=== PATIENT | female | born 1995 | race Caucasian/White ===

== ENCOUNTER → 2022-04-09 | Outpatient (CLI) | payer MEDICAID, SELFPAY ==
--- NOTE | 2022-04-09 15:12 | ST.MBS ---
Modified Barium Swallow - Patient Information Study Date: 04/09/22 Study Time: 12:50 Direct Billable Minutes: 55 Total Minutes procedure & reportin Diagnosis: Dysphagia (R13.10) Referring Physician: Suraj Freeman Reason for Referral: Objectively assess swallow function, assess risk for aspiration, and determine recommendations for least restrictive diet textures and compensatory strategies to improve safety of swallow. Medical History: The patient is a 27-year-old female with PMH including seizures and depression who reports increased difficulty swallowing beginning ~2.5 weeks ago. Pt initially reported choking on foods; however, then clarified her difficulty swallowing is characterized by sensation of food stuck on the back of her tongue, sensation of her swallowing muscles lagging, and need for use of finger sweep to clear foods on the back of her tongue. She reports no coughing, difficulty breathing when food becomes stuck, and no need for Heimlich at any time. She did go to the ED ~2.5 weeks ago as she felt she was unable to eat food or even swallow her saliva, she also reported having a panic attack at that time. Liquids have given her no difficulty swallowing. She is currently consuming soft solids / thin liquids and avoiding breads and meats. Current Diet Ordered: Soft solids / Thin liquids Dentition: Missing Teeth Mental Status: WNL Respiratory Status: Oxygenating on Room Air - Penetration-Aspiration Scale Penetration-Aspiration Scale: OBJECTIVE ASSESSMENT OF SWALLOW FUNCTION (QUANTITATIVE ? PER TRIAL): PENETRATION / ASPIRATION SCALE (LEVINE): 1 = does not enter airway 2 = enters airway/above vocal folds/ejected 3 = enters airway/above vocal folds/not ejected 4 = enters airway/contacts vocal folds/ejected 5 = enters airway/contacts vocal folds/not ejected 6 = enters airway/below vocal folds/ejected 7 = enters airway/below vocal folds/not ejected despite effort 8 = enters airway/below vocal folds/no effort VIDEOFLOROSCOPIC SCALE SCORE (LEVINE): Grade I = aspiration of material that has penetrated into the laryngeal vestibule, intact cough reflex Grade II = aspiration < 10 % of the bolus, intact cough reflex Grade III = aspiration of < 10 % of the bolus, reduced cough reflex or aspiration of > 10 % of the bolus, intact cough reflex Grade IV = aspiration of > 10 % of the bolus, reduced cough reflex - Penetration-Aspiration Scale Score Thin Liquid via teaspoon Result: 1= does not enter airway Thin Liquid via teaspoon Trial 2 Result: 1= does not enter airway Thin Liquid via large single sip from cup Result: 1= does not enter airway Thin Liquid via sequential sips from cup Result: 2= enter airway/above vocal folds/ejected - trace [place] Thick Liquid via large single sip from cup Result: 1= does not enter airway Pudding via teaspoon with esophageal screen Result: 1= does not enter airway Thin Liquid via sequential sips from straw with esophageal screen Result: 1= does not enter airway 1/2 Cookie Result: 1= does not enter airway Thin Liquid via large single sip from cup Trial 2 with esophageal screen Result: 1= does not enter airway - Oral Phase Labial Seal: No Labial Escape Tongue Control During Bolus Hold: Posterior escape of less than half of bolus Bolus Preparation/Mastication: Slow prolonged chewing/mashing with complete recollection Bolus Transport/Lingual Motion: Delayed initiation of tongue motion Oral Residue: Residue collection on oral structures - Pharyngeal Phase Initiation of Pharyngeal Swallow: Bolus head in pyriforms Soft Palate Elevation: No bolus between soft palate and pharyngeal wall Laryngeal Elevation: Comp. Superior move thyroid cart w/comp. apprx arytenoid cart-epig pet Anterior Hyoid Excursion: Partial anterior movement Epiglottic Movement: Complete inversion Laryngeal Vestibule Closure at Height of Swallow: Incomplete; narrow column of air/contrast in laryngeal vestibule - trace laryngeal penetration with sequential thin with full ejection Pharyngeal Stripping Wave: Present - complete Pharyngoesophageal Segment Opening: Complete distension and complete duration; no obstruction of flow Tongue Base Retraction: Trace column of contrast between tongue base & post. pharyngeal wall Pharyngeal Residue: Trace residue within or on pharyngeal structures - Esophageal Phase Esophageal Clearance: Esophageal retention w/ retrograde flow below pharyngoesophageal seg. - Diagnosis/Impression Diagnosis: Esophageal dysphagia (R13.14) Impression: The oropharyngeal phase is grossly WNL. Mild delay initiating the swallow. Mildly decreased anterior hyoid excursion. Pt presents with piecemeal deglutition of large sips and cookie, but good oral clearance with independent initiation of second swallows. Trace pharyngeal residue after the swallow. No aspiration and only trace laryngeal penetration of sequential sips of thin liquids that fully ejected from the laryngeal vestibule. Good mastication abilities. The patient presented with complete esophageal retention of pudding in her mid esophagus with retrograde flow below UES. The pudding mostly cleared with thin liquid wash. - Recommendations Diet: Thin Liquids - Easy to Chew textures (IDDSI Level 7) Compensatory Strategies: Small Bites, Small Sips, Slow Rate, Alternate bites/solids and sips/liquids - 1:1 ratio, Sitting upright, Remain sitting upright for 30 minutes after PO intake Recommend Repeat Modified Barium Swallow: No Need for Skilled Speech Therapy Services: No Recommended Referrals: GI Consult - to address deficits in esophageal motility Education Completed: 1. Described result of evaluation. - Reviewed images and discussed recommendations with pt and pt's mother, Natalie. Education well received. - Status Active ST Patient: Active - Contact Information [facility] Speech Therapy:: Odalys Linder M.A. [facility] Speech-Language Pathologist [facility] [address] [place] [address] [email or web address] [phone] 04/09/22 16:06
== END | disposition home or self-care (01) ==
LOC: RAD 12:34
PROVIDERS: PCP Family Medicine; Referring Provider Family Medicine; Visit Provider Family Medicine
DX: R13.10 Dysphagia, unspecified (principal)
CPT/HCPCS: 74230; 92611

== ENCOUNTER 2022-09-19 06:04 | Day surgery (SDC) | payer MEDICAID, SELFPAY ==
[2022-09-19 06:39] LABS: Internal QC Validated? YES +Cl - CLEAR BKGD; Pregnancy, Urine Negative Negative
[2022-09-19 06:47] VITALS: BP 119/81; PULSE 103; RESP 16; TEMP 37.3; O2SAT 98; BMI 27.6
[2022-09-19] MEDS: Lactated Ringers 1,000 ML 15 ML IV (06:55)
--- NOTE | 2022-09-19 07:30 | EGD_PTH ---
PATIENT: KAHLIL DHILLON LOC: EN U#:[id number] AGE/SX: 27/F ROOM: RE09/19/[address]: Dr. hCris Yañez DO : 1995 BED: DIS: 09/19/2022 SPEC #: [id number] RECD: 09/19/22 10:13 STATUS: TD JEWEL #: [id number] THIAGO: 09/19/22 07:[address]: Chris Yañez DEPT: SURGICAL PATHOLOGY RECD BY: Whit Mcallister ENTERED: 09/19/22 13:02 SP TYPE: EGD BIOPSY ANKIT DR: Dr. Suraj Freeman MD Tissues: A - Duodenum, NOS B - Gastric mucous membrane C - Esophagus, NOS Procedures: Surgery Specimen Level IV HEADER OPERATION: EGD ([facility]) with biopsy PRE-OP DIAGNOSIS: Dysphagia TISSUE SUBMITTED: A - Duodenum biopsy, B - Gastric antrum biopsy, C - Random esophageal biopsy MICROSCOPIC DIAGNOSIS A. Duodenum, biopsy: No pathologic change. B. Gastric antrum, biopsy: Chronic gastritis. See comment. C. Esophagus, random biopsy: Consistent with changes of reflux. See comment. AM:sruthi 09/20/2022 COMMENT B. The results of immunohistochemistry for Helicobacter pylori will be reported separately ([id number]). C. The eosinophilic count varies from 7 to 15% in each high power field. Clinical correlation is suggested. MICROSCOPIC DESCRIPTION Slides are reviewed. GROSS DESCRIPTION A - Received in fixative is one container labeled with the patient's name and designated duodenum biopsy. The specimen consists of multiple irregular fragments of light brody soft tissue that in aggregate measure 1.0 x 0.3 x 0.1 cm. The specimen is totally submitted in one cassette. B - Received in fixative is one container labeled with the patient's name and designated gastric antrum biopsy. The specimen consists of multiple irregular fragments of light brody soft tissue that in aggregate measure 0.6 x 0.4 x 0.1 cm. The specimen is totally submitted in one cassette. C - Received in fixative is one container labeled with the patient's name and designated random esophagus. The specimen consists of multiple irregular fragments of light brody soft tissue that in aggregate measure 1.0 x 0.5 x 0.1 cm. The specimen is totally submitted in one cassette. / CASSANDRA:sruthi 09/19/2022 TC:3 CPT: 89631 x3
--- NOTE | 2022-09-19 07:30 | IMM_PTH ---
PATIENT: KAHLIL DHILLON LOC: EN U#:[id number] AGE/SX: 27/F ROOM: RE09/19/[address]: Dr. Chris Yañze DO : 1995 BED: DIS: 09/19/2022 SPEC #: [id number] RECD: 09/19/22 13:30 STATUS: TD RELatia #: [id number] THIAGO: 09/19/22 07:[address]: Chris Yañez DEPT: IMMUNOHISTOCHEMISTRY RECD BY: Regine Christine ENTERED: 09/19/22 13:31 SP TYPE: IMMUNO OTHR DR: Dr. Suraj Freeman MD Tissues: B - Stomach, NOS Procedures: H Pylori (initial) PHYSICIAN & INSTITUTION [place] [id number] SPECIMEN INFORMATION: Tissue Source: B - Gastric antrum Clinical Info: Dysphagia Specimen Number: [id number] CPT code: 90753 METHODOLOGY: Deparaffinized sections of prefer/formalin-fixed tissue or PAP/DQ stained slides are incubated with monoclonal/polyclonal antibodies/oligonucleotide probes. Localization is made via biotin free immunoperoxidase method. Appropriate controls are performed and reacted as expected. Results on target cell population are indicated in the following table: RESULTS: ANTIBODY / CLONE RESULT Block B H Pylori (polyclonal) negative These tests were developed and their performance characteristics determined by [facility]. They may not have been cleared or approved by the U.S. Food and Drug Administration. The FDA has determined that such clearance or approval is not necessary. The above immunohistochemical/dualISH markers are ordered and reviewed by the Pathologist. INTERPRETATION: B. Gastric antrum, biopsy: Negative for Helicobacter pylori organisms. AM:sruthi 09/20/2022
--- NOTE | 2022-09-19 07:42 | PCM.HP.BLA ---
History and Physical Date of Admission: 09/19/22 Chief Complaint: difficulty swallowing Details: KAHLIL DHILLON, is a 27 F who presents to the office today to establish with GI for difficulty swallowing. She is accompanied by her mom. Dysphagia began at the end of 2021, flared in March 2022. Sensation that esophagus isn't moving food along correctly. The problem feels like it's in the oropharynx or upper esophagus. Went to [facility] ED on 03/21/22 for difficulty swallowing, she had sinus tachycardia then, she reports she was having a panic attack because of the sensation of choking. Had a MBSS here at [facility] with [employer] [employer]--found to have esophageal retention w/ retrograde flow below pharyngoesophageal seg. She has has seasonal allergies. Hx of asthma. She is avoiding meat other than ground beef, avoiding sticky foods like bread. Only rare heartburn from spicy foods. No nausea, vomiting, abd pain. No diarrhea, constipation, melena, hematochezia. Weight is stable. ROS Const Constitutional: Positive for fatigue ENT ENT: Positive for difficulty swallowing Gastro GI: Positive for difficulty swallowing; No abdominal pain, belching, bloating, change in bowel habits, change in stool character, coffee ground emesis, constipation, cramping, diarrhea, heartburn, feeling full early, excessive flatus, incontinent of stools, Vomiting blood/hematemesis, Blood in stool, loose stools, Black,tarry stools, nausea/dyspepsia, pain with swallowing, vomiting or other Musc Musculoskeletal: No joint pain Skin Skin: No yellowing of the eye or itchy eyes Psych Psychiatric: Positive for anxiety and No depression Endo Endocrine: Positive for fatigue Aller/Imm Allergy/Immunologic: No itchy eyes Magnus/Lymp Hematologic/Lymphatic: Positive for easy bruising; No easy bleeding Exam Const General: cooperative, healthy appearing and comfortable Nutritional Appearance: average body habitus Orientation: alert, awake and oriented x3 HENMT Head: normal to inspection Neck Neck: normal visual inspection Resp Effort & Inspection: normal respiratory effort GI Inspection: normal to inspection Skin General: no rashes or lesions noted Neuro Speech: speech normal Gait: normal gait Psych Mood: congruent mood Quality Reporting Tobacco Screening ([facility] 138) Smoking Status: Current every day smoker Assessment and Plan Assessment and Plan (1) Dysphagia: Status: Chronic Plan: 27 yr old female with dysphagia. Esophageal retention on MBSS. Will get EGD to eval for esophagitis, reflux, stricture/stenosis, EOE, spasms; f/u in office approx 2 wks later to discuss results and treatment. We discussed possible esophageal manometry. Orders: Orders EGD 09/19/22 R13.10 - Dysphagia, unspecified Medications: Discontinued albuterol sulfate 90 mcg/actuation (ProAir HFA) Discontinued Reason: Pt no longer taking 1 inh inhalation ONCE paroxetine HCl Discontinued Reason: Order Completed 20 mg PO DAILY clonazepam (Klonopin) Discontinued Reason: Pt no longer taking 0.5 mg PO DAILY trazodone Discontinued Reason: Pt no longer taking 50 mg PO DAILY I have examined the patient and the H&P has been reviewed. There are no clinical changes since date of exam.
[2022-09-19 07:55] VITALS: BP 108/71; BP 119/81; PULSE 107; RESP 16; TEMP 36.9; O2SAT 96
--- NOTE | 2022-09-19 07:58 | OP.EGD_ITS ---
Patient Name: Amy Medina Procedure Date: 09/19/2022 7:34 AM Date of : 1995 Age: 27 Procedure: Upper GI endoscopy Indications: Functional Dyspepsia, Dysphagia Providers: Chris Yañez DO Referring MD: Chris Yañez DO Medicines: Monitored Anesthesia Care Patient Profile: This is a 27 year old female. Refer to note in patient chart for documentation of history and physical. Patient has symptoms of acute dysphagia and chronic dyspepsia. Complications: No immediate complications. Procedure: Pre-Anesthesia Assessment: - Prior to the procedure, a History and Physical was performed, and patient medications and allergies were reviewed. The risks and benefits of the procedure and the sedation options and risks were discussed with the patient. All questions were answered and informed consent was obtained. Patient identification and proposed procedure were verified by the physician in the pre-procedure area. Mental Status Examination: alert and oriented. Airway Examination: normal oropharyngeal airway and neck mobility. Respiratory Examination: clear to auscultation. CV Examination: normal. Prophylactic Antibiotics: The patient does not require prophylactic antibiotics. Prior Anticoagulants: The patient has taken no previous anticoagulant or antiplatelet agents. ASA Grade Assessment: II - A patient with mild systemic disease. After reviewing the risks and benefits, the patient was deemed in satisfactory condition to undergo the procedure. The anesthesia plan was to use monitored anesthesia care (MAC). Immediately prior to administration of medications, the patient was re-assessed for adequacy to receive sedatives. The heart rate, respiratory rate, oxygen saturations, blood pressure, adequacy of pulmonary ventilation, and response to care were monitored throughout the procedure. The physical status of the patient was re-assessed after the procedure. After obtaining informed consent, the endoscope was passed under direct vision. Throughout the procedure, the patient's blood pressure, pulse, and oxygen saturations were monitored continuously. The gastroscope was introduced through the mouth, and advanced to the second part of duodenum. The upper GI endoscopy was accomplished without difficulty. The patient tolerated the procedure well. Scope In: 7:46:26 AM Scope Out: 7:50:57 AM Total Procedure Duration Time 0 hours 4 minutes 31 seconds Findings: Abnormal motility was noted at the cricopharyngeus. The cricopharyngeus was abnormal. There is spasticity of the esophageal body. The distal esophagus/lower esophageal sphincter is spastic, but gives up passage to the endoscope. Tertiary peristaltic waves are noted. Biopsies were obtained from the proximal and distal esophagus with cold forceps for histology of suspected eosinophilic esophagitis. Patchy mildly erythematous mucosa without bleeding was found in the gastric antrum. Biopsies were taken with a cold forceps for histology. Verification of patient identification for the specimen was done. Estimated blood loss was minimal. Patchy mildly erythematous mucosa without active bleeding and with no stigmata of bleeding was found in the duodenal bulb. Biopsies were taken with a cold forceps for histology. Verification of patient identification for the specimen was done. Estimated blood loss was minimal. Impression: - Abnormal esophageal motility. Biopsied. - Erythematous mucosa in the antrum. Thought to be secondary to bile reflux. This area was biopsied. - Erythematous duodenopathy. Thought to be secondary to bile reflux. This area was biopsied. Recommendation: - Discharge patient to home. - Resume previous diet. - Continue present medications. - Await pathology results. Procedure Code(s): --- Professional --- 18510, Esophagogastroduodenoscopy, flexible, transoral; with biopsy, single or multiple CPT copyright 2017 [employer]. All rights reserved. The codes documented in this report are preliminary and upon hook up driver review may be revised to meet current compliance requirements. Chris Yañez DO 09/19/2022 7:57:35 AM This report has been signed electronically. Number of Addenda: 0 Note Initiated On: 09/19/2022 7:34 AM
--- NOTE | 2022-09-19 07:58 | OP.CCLET_ITS ---
09/19/2022 Suraj Freeman MD [address] [id number] Re : Upper GI endoscopy procedure for Amy Medina Dear Dr. Freeman This procedure was performed on Monday, September 19, 2022. My impressions and recommendations are as follows: Impressions : - Abnormal esophageal motility. Biopsied. - Erythematous mucosa in the antrum. Thought to be secondary to bile reflux. This area was biopsied. - Erythematous duodenopathy. Thought to be secondary to bile reflux. This area was biopsied. Recommendations : - Discharge patient to home. - Resume previous diet. - Continue present medications. - Await pathology results. My findings are described in the full procedure note, which is enclosed. If I can be of further assistance, please feel free to contact me at . Sincerely, Chris Yañez, 09/19/2022 7:57:35 AM This report has been signed electronically.
[2022-09-19 08:00] VITALS: BP 109/72; BP 119/81; PULSE 97; RESP 16; O2SAT 97
[2022-09-19 08:05] VITALS: BP 112/78; BP 119/81; PULSE 91; RESP 16; O2SAT 100
[2022-09-19 08:10] VITALS: BP 111/72; BP 119/81; PULSE 89; RESP 16; TEMP 36.6; O2SAT 100
[2022-09-19] MEDS: Ipratropium/Albuterol Sulfate 3 ML AMPUL.NEB INHALATION (08:20)
[2022-09-19 08:33] VITALS: BP 119/81
== END 2022-09-19 08:55 | disposition home or self-care (01) ==
LOC: EN 06:06 → AC 06:07
PROVIDERS: Anesthesiology; PCP Family Medicine; Referring Provider Family Medicine; Visit Provider Internal Medicine Gastroenterology
PROC: 0DJ08ZZ Inspection of Upper Intestinal Tract, Via Natural or Artificial Opening Endoscopic (ICD-10-PCS; CPT 43235; principal; 2022-09-19 07:25)
DX: K29.51 Unspecified chronic gastritis with bleeding (principal); F17.200 Nicotine dependence, unspecified, uncomplicated; J45.909 Unspecified asthma, uncomplicated
CPT/HCPCS: 43239; 81025; 88305; 88342; 94640; J7120; J2405

== ENCOUNTER → 2022-09-26 | Outpatient (CLI) | payer MEDICAID, SELFPAY ==
[2022-09-26 10:06] LABS: Absolute Lymphocyte Count 1.51 X10^3/uL (0.83-4.51); Basophil# 0.05 X10^3/uL; Basophil% 0.8 % (0-1); Eosinophil# 0.11 X10^3/uL; Eosinophils% 1.8 % (0-5); Hematocrit 44.2 % (37-47); Hemoglobin 13.4 g/dL (12.0-15.0); Lymphocyte # 1.51 X10^3/ul (0.83-4.51); Lymphocyte % 24.5 % (19-41); Mean Corp Hgb Conc 30.3 g/dL (32-36); Mean Corpuscular Hgb 22.8 pg (27.0-32.0); Mean Corpuscular Volume 75.3 fL (81-99); Mean Platelet Vol. 12.6 fl (6.2-12.0); Monocyte# 0.45 X10^3/uL; Monocyte% 7.3 % (0-10); NRBC Flagged by Analyzer 0 % (0-5); Neutrophil # 4.02 X10^3/uL (2.7-7.7); Neutrophil % 65.1 % (47-70); Platelet Count 249 K/mm3 (150-450); RBC Distribution Width CV 14.1 % (11.6-14.6); Red Blood Count 5.87 M/mm3 (4.2-5.4); White Blood Count 6.2 K/mm3 (4.4-11.0)
[2022-09-26 10:17] LABS: Erythrocyte Sedimentation Rate 25 mm/hr (0-30)
[2022-09-26 10:48] LABS: CRP < 2.90 mg/L (0.0-3.0)
[2022-09-29 03:07] LABS: Beef <0.10 kU/L (Class 0); Chocolate <0.10 kU/L (Class 0); Clam <0.10 kU/L (Class 0); Codfish <0.10 kU/L (Class 0); Corn <0.10 kU/L (Class 0); Egg, White <0.10 kU/L (Class 0); Egg, Whole <0.10 kU/L (Class 0); Milk (Cow) <0.10 kU/L (Class 0); Peanut <0.10 kU/L (Class 0); Pork 0.62 kU/L (Class II); SCALLOP <0.10 kU/L (Class 0); SESAME SEED <0.10 kU/L (Class 0); Shrimp <0.10 kU/L (Class 0); Soybean <0.10 kU/L (Class 0); Walnut, (Food) <0.10 kU/L (Class 0); Wheat <0.10 kU/L (Class 0)
[2022-09-29 11:08] LABS: Cytoplasmic Ab (C-ANCA) <1:20 titer (Neg:<1:20); Immunoglobulin A 366 mg/dL (87-352); Immunoglobulin E 72 IU/mL (6-495); Immunoglobulin G 1189 mg/dL (586-1602); Immunoglobulin M 219 mg/dL (26-217); Perinuclear Ab (P-ANCA) <1:20 titer (Neg:<1:20)
== END | disposition home or self-care (01) ==
LOC: LAB 09:19
PROVIDERS: PCP Family Medicine; Referring Provider Internal Medicine Gastroenterology; Visit Provider Internal Medicine Gastroenterology
DX: R13.10 Dysphagia, unspecified (principal)
CPT/HCPCS: 36415; 82784; 82785; 85025; 85652; 86003; 86005; 86140; 86256

== ENCOUNTER → 2023-12-11 | Outpatient (CLI) | payer MEDICAID, SELFPAY ==
[2023-12-11 11:54] LABS: Absolute Lymphocyte Count 1.54 X10^3/uL (0.83-4.51); Absolute Neutrophil Count 3.8 X10^3/uL (2.0-7.7); Basophil# 0.04 X10^3/uL; Basophil% 0.7 % (0-1); Eosinophil# 0.08 X10^3/uL; Eosinophils% 1.4 % (0-5); Hematocrit 44.1 % (37-47); Hemoglobin 13.4 g/dL (12.0-15.0); Lymphocyte # 1.54 X10^3/ul (0.83-4.51); Lymphocyte % 26.6 % (19-41); Mean Corp Hgb Conc 30.4 g/dL (32-36); Mean Corpuscular Hgb 22.7 pg (27.0-32.0); Mean Corpuscular Volume 74.6 fL (81-99); Mean Platelet Vol. 12.1 fl (6.2-12.0); Monocyte# 0.35 X10^3/uL; Monocyte% 6.1 % (0-10); NRBC Flagged by Analyzer 0 % (0-5); Neutrophil # 3.76 X10^3/uL (2.7-7.7); Platelet Count 242 K/mm3 (150-450); RBC Distribution Width CV 14.7 % (11.6-14.6); RBC Distribution Width SD 38.9 fl (35.1-43.9); Red Blood Count 5.91 M/mm3 (4.2-5.4); White Blood Count 5.8 K/mm3 (4.4-11.0)
[2023-12-11 12:20] LABS: AST(SGOT) 9 U/L (15-37); Alanine Aminotransfer ALT/SGPT 16 U/L (13-56); Albumin, Serum 4.1 g/dL (3.2-5.0); Alkaline Phosphatase 99 U/L (45-117); Anion Gap 3 (5-15); BUN 6 mg/dL (7-18); BUN/Creat Ratio 6.9 RATIO (10-20); Calcium,Total 9.2 mg/dL (8.5-10.1); Chloride 108 mmol/L (98-107); Creatinine, Serum 0.87 mg/dL (0.55-1.02); EST Glomerular Filtration Rate 81 mL/min (>60); Est Glom Filt Rate - Afr Amer 98 mL/min (>60); Glucose 96 mg/dL (74-106); Potassium 3.6 mmol/L (3.5-5.1); Protein, Total 8.1 g/dL (6.4-8.2); Sodium Level 140 mmol/L (136-145); Vitamin B12 372 pg/mL (211-911)
== END | disposition home or self-care (01) ==
LOC: LAB 11:18
PROVIDERS: PCP Family Medicine; Referring Provider Internal Medicine Gastroenterology; Visit Provider Internal Medicine Gastroenterology
DX: K22.4 Dyskinesia of esophagus (principal)
CPT/HCPCS: 36415; 80053; 82607; 85025

== ENCOUNTER 2024-05-25 05:43 | Day surgery (SDC) | payer MEDICAID, SELFPAY ==
[2024-05-25 06:12] LABS: Internal QC Validated? YES +Cl - CLEAR BKGD; Pregnancy, Urine Negative Negative
[2024-05-25 06:14] VITALS: BP 126/73; PULSE 108; RESP 16; TEMP 37.1; O2SAT 100; BMI 28.5
--- NOTE | 2024-05-25 06:21 | HP.PCM_ITS ---
HPI - General General Date of Admission: 05/25/24 Date of Service: 05/25/24 Chief Complaint: dysphagia HPI Narrative KAHLIL DHILLON, is a 29 F who presentsChief Complaint: difficulty swallowing Details: KAHLIL DHILLON is a 29 F who presents to the office today for EGD 09/2022 - Abnormal esophageal motility. Biopsied. - Erythematous mucosa in the antrum. Thought to be secondary to bile reflux. This area was biopsied. - Erythematous duodenopathy. Thought to be secondary to bile reflux. This area was biopsied. BIOPSIES revealed gastritis and 7-15% eosinophils/hpf, negative for H. pylori - seen in office with mom today - trouble swallowing certain foods - bread, potatoes, dense, sticky, dry - dysphagia for the past 2 years - dysphagia is high in the esophagus - she is usually able to wash food down with fluids - she denies ever experiencing HB symptoms - denies any cough - PPI daily for at least 18 months, she does not feel this has shown any improvement since starting - baclofen was added and she does feel like this helped slightly - amitriptyline - drowsiness and psych is concerned with interaction with escitalopram - no improvement in swallowing - denies any weight loss - she denies any family h/o autoimmune disorders - she does have Asthma - she reports seasonal allergies - she reports prior labs revealed allergy to pork Plan Details Follow Up: 4 Months [facility] Medical History Depression Anemia Former smoker PTSD (post-traumatic stress disorder) Panic disorder HAMILTON (generalized anxiety disorder) Asthma Wears glasses Dysphagia Esophageal dysmotility Home Medications ?Medication ?Instructions ?Recorded ?Last Taken ?Type pantoprazole 40 mg tablet,delayed 40 mg PO BID #60 tab s 11/27/23 05/24/24 23:50 Rx release baclofen 10 mg tablet 10 mg PO BID 30 days #60 tab s 02/10/24 05/24/24 11:50 Rx propranolol 10 mg tablet 10 mg PO TID PRN anxiety #90 tabs 02/20/24 Unknown Rx escitalopram oxalate 20 mg tablet 20 mg PO DAILY 30 da ys #30 tabs 05/07/24 05/24/24 11:50 Rx medroxyprogesterone 150 mg/mL 150 mg IM [id number] 05/07 Unknown History intramuscular syringe (Depo-Provera) albuterol 90 mcg/actuation aerosol 90 mcg inhalation D AILY PRN PRN 05/25/24 Unknown History inhaler asthma flareup Allergy/AdvReac Type Severity Reaction Status Date / Time Pork/Porcine Containing AdvReac Mild intolerance Verified 05/25/24 06:06 Products Family History Other Anxiety Arthritis Suicide attempt Surgical History History of esophagogastroduodenoscopy (EGD) History of wisdom tooth extraction Social History Smoking Status: Former smoker alcohol intake: former substance use type: does not use frequency: 1-2 times per week ROS Constitutional Constitutional: Denies fatigue, fever(s), poor appetite, weight gain or weight loss Gastrointestinal Gastrointestinal: Denies belching, bloating, change in bowel habits, change in stool character, chewing difficulty, coffee ground emesis, constipation, cramping, diarrhea, dyspepsia, dysphagia, early satiety, excessive flatus, fecal incontinence, heartburn, hematemesis, hematochezia, hemorrhoids, loose stools, melena, nausea, odynophagia, rectal bleeding, tenesmus, vomiting or weight changes Vital Signs Vital Signs Vital Signs: 05/25/24 06:13 05/25/24 06:14 Temperature 98.7 F Temperature Source Temporal Pulse Rate 108 H Respiratory Rate 16 Respiratory Pattern Normal Blood Pressure 126/73 H Blood Pressure Mean 90 Blood Pressure Source Monitor Blood Pressure Position Semi-Fowlers Blood Pressure Location Right Arm Pulse Ox 100 Oxygen Delivery Method Room Air Weight Weight: 166 lb Body Mass Index (BMI) 28.5 Physical Exam Const alert, oriented x3, no apparent distress and healthy appearing General Appearance: cooperative GI normal to inspection, nondistended, normoactive bowel sounds, soft to palpation, non-tender and non-distended Percussion: normal to percussion Rectal Exam: deferred Results Lab / Micro Data Labs: Laboratory Results - last 24 hr 05/25/24 05:55: Urine Test Negative Assessment & Plan Assessment/Plan (1) Eosinophilic esophagitis: (2) Esophageal dysmotility: (3) Dysphagia: QUALIFIERS: Dysphagia type: esophageal phase Qualified Code(s): R13.19 - Other dysphagia PLAN: Assessment and Plan Assessment and Plan (1) Eosinophilic esophagitis: Status: Chronic (2) Esophageal dysmotility: Status: Chronic (3) Dysphagia: Status: Chronic Qualifiers: Dysphagia type: esophageal phase Qualified Code(s): R13.19 - Other dy sphagia Medications: Discontinued amitriptyline Discontinued Reason: None 10 mg PO QHS 30 tabs 2RF Plan 29y/o female presents for follow-up with dysphagia. PMH is significant for PTSD, HAMILTON, panic disorder, and Asthma. She follows with psychiatrist. She was last seen by Valery Barragan CNP on 12/11/2023 for complains of dysphagia with certain foods. MBS was completed 04/09/2022 revealed esophageal retention w/ retrograde flow below pharyngoesophageal seg. She was started on amitriptyline 10mg at HS for treatment of esophageal dysmotility with psychogenic cause. She is also taking pantoprazole 40mg BID, baclofen 10mg BID, escitalopram 10mg QD and propranolol 10mg PRN anxiety. EGD was previously performed September 2022 (PPI naive) and biopsies revealed eosinophil count 7-15%/hpf. She is seen in the office today with her mom and she reports no improvement in swallowing since starting amitriptyline. She does endorse extreme fatigue and reports psychiatrist is concerned with combination of SSRI and TCA. I have recommended discontinuing amitriptyline as it has shown no benefit. We have rev iewed prior EGD findings and a count of 15 or more eosinophils per high-powered microscopic field is highly suggestive of EoE. Although, her biopsies are borderline at 7-15%/hpf, she has failed BID PPI and and noted noted symptom resolution with the addition of baclofen and TCA. I have recommended a 2-FED diet and repeat EGD in 3 months. She will contact office in 4-weeks with symptom update, if she has not noted any improvement in symptoms, I will change her PPI and she will continue 2-FED. She will follow-up in the office post procedure. Patient Instructions: - Discontinue amitriptyline - Continue pantoprazole 40mg twice a day - Start a 2 food elimination diet (2-FED) with elimination of gluten and dairy - Send portal update in 1 month if no improvement in dysphagia with change PPI to Lansoprazole 30mg QD - EGD in 3 months to rebiopsy for eosinophils - Will consider referral to [employer] in future pending symptoms - Follow-up in office post EGD to review findings
--- NOTE | 2024-05-25 06:31 | PRE.ANES_ITS ---
ASA Classification* ASA Classification ASA Classification: 2 Assessment & Plan Anesthesia* Anesthesia Assessment Anesthesia Assessment: Discussed sedation and/or anesthesia options, risks, benefits, and alternatives with patient/parents/legal guardian/POA. Questions invited. The patient/parents/legal guardian/POA seems to understand and agrees to proceed with anesthesia plan. Reviewed the physical assessment, medical history, allergy history and patient home medications list prior to surgery/procedure/anesthetic and documented any changes. Performed airway and anesthesia risk assessments. Anesthesia Type Anesthesia Type: MAC History Source History Obtained from:: Patient and Chart Anesthesia Focused Assessment* Temperature: 98.7 F Pulse Rate: 108 Blood Pressure: 126/73 Respiratory Rate: 16 Pulse Ox: 100 Oxygen Delivery Method: Room Air Airway Assessment Mouth opens: >3 cm Mallampati Score: II Teeth Condition: Intact Neck Range of motion (ROM): Full ROM Focused Labs Anesthesia Preop lab: CBC WBC 5.8 K/mm3 (4.4-11.0) 12/11/23 11:12/11/23 RBC 5.91 M/mm3 (4.2-5.4) H 12/11/23 11:26 12/11/23 Hgb 13.4 g/dL (12.0-15.0) 12/11/23 11:12/11/23 Hct 44.1 % (37-47) 12/11/23 11:26 12/11/23 Plt Count 242 K/mm3 (150-450) 12/11/23 11:26 12/11/23 CHEMISTRY Potassium 3.6 mmol/L (3.5-5.1) 12/11/23 11:12/11/23 Sodium 140 mmol/L (136-145) 12/11/23 11:12/11/23 BUN 6 mg/dL (7-18) L 12/11/23 11:12/11/23 Creatinine 0.87 mg/dL (0.55-1.02) 12/11/23 11:12/11/23 Glucose 96 mg/dL (74-106) 12/11/23 11:12/11/23 COAG Urine Test Negative Negative 05/25/24 05:55 05/25/24 Pre-Assessment Diagnosis/Proposed Procedure Planned Operative Procedure(s): EGD with possible Biopsy Anesthesia History Anesthesia History - electronic drafter: Anesthesia History - electronic drafter Hx Hospitalization No 05/21/24 10:23 Any Problems With Anesthesia No 05/21/24 10:23 Cholinesterase deficiency No 05/21/24 10:23 You/Your Family Experience No 05/21/24 10:23 fever (hyperthermia) with Relationship Recent Exposure to Contagious No 05/25/24 06:13 Disease Does patient have nerve No 05/21/24 10:23 stimulator Patient instructed to have device shut off --Does patient have Pacemaker No 05/25/24 06:14 or ICD? When Was Last Pacemaker Check QUESTION #4 FULL TEXT: You/Your Family Experience fever (hyperthermia) with Anesthesia Last Oral Intake Last Oral intake: Last Oral Intake NPO since 05:00 05/25/24 06:14 Meds taken in AM with sips of water? Meds patient instructed to take am of surgery PONV PONV - electronic drafter: PONV - electronic drafter Female Yes 05/21/24 10:23 HX of Motion Sickness No 05/21/24 10:23 HX of N/V After Surgery No 05/21/24 10:23 Non-Smoker Yes 05/21/24 10:23 Duration of Surgery greater No 05/21/24 10:23 than 60 minutes Number of Risk Factors 2 05/21/24 10:23 PONV Score Moderate Risk 05/21/24 10:23 Height & Weight Height & Weight: Anesthesia: Height & Weight Height 5 ft 4 in 05/25/24 06:14 Weight: 75.296 kg 05/25/24 06:14 Body Mass Index (BMI) 28.5 05/25/24 06:14 Respiratory Assessment Respiratory Assessment - electronic drafter: Respiratory Tract Infection Hx - electronic drafter Hx Respiratory Tract Infection No 05/21/24 10:23 STOP Sleep Apnea STOP Sleep Apnea - electronic drafter: STOP Sleep Apnea - electronic drafter Hx Hypertension No 05/21/24 10:23 Hx Sleep Apnea No 05/21/24 10:23 CPAP BIPAP Do you snore loudly (louder No 05/21/24 10:23 than talking or can be heard Do you often feel tired/ No 05/21/24 10:23 fatigued/ sleepy during daytime? Has anyone observed you stop No 05/21/24 10:23 breathing during sleep? STOP Results Negative 05/21/24 10:23 QUESTION #5 FULL TEXT : Do you snore loudly (louder than talking or can be heard through closed doors)? Tobacco Use History Tobacco Use History - electronic drafter: Tobacco Use History - electronic drafter Tobacco Use Smoking Status Former smoker 05/21/24 10:23 Hx Tobacco Use No 05/21/24 10:23 Years Smoking Packs Smoked per Day Smoking Cessation Date was No - quit smoking greater 05/21/24 10:23 within the last 15 years than 15 years ago Hx Smoking Cessation Date 03/18/09 05/21/24 10:23 Hx Smoking Cessation Counseling Hematologic Medial History Hematologic Hx - electronic drafter: Hematologic Medical Hx - financial aid advisor Hx of Blood Transfusion No 05/21/24 10:23 Hx of Transfusion in last 3 No 05/21/24 10:23 Months Date of Last Transfusion (if within last 3 months) Ever experience any problems No 05/21/24 10:23 with transfusion(s)? Specify any problems Hx of Preganancy in last 3 N/A 05/21/24 10:23 Months Nurse Filling Out Transfusion NBUCHER 05/21/24 10:23 & Questions: Date: 05/21/24 05/21/24 10:23 Time: 10:24 05/21/24 10:23 Patient unable to answer at this time (ie. confused, unrespo /Reproduction History /Reproductive History - electronic drafter: /Reproductive Hx- electronic drafter Hx Now No 05/21/24 10:23 Gestational Age (in weeks): EDC: Hx Hx Para Hx Section SAB No 05/21/24 10:23 [facility] Medical History Depression Anemia Former smoker PTSD (post-traumatic stress disorder) Panic disorder HAMILTON (generalized anxiety disorder) Asthma Wears glasses Dysphagia Esophageal dysmotility Home Medications ?Medication ?Instructions ?Recorded ?Last Taken ?Type pantoprazole 40 mg tablet,delayed 40 mg PO BID #60 tab s 11/27/23 05/24/24 23:50 Rx release baclofen 10 mg tablet 10 mg PO BID 30 days #60 tab s 02/10/24 05/24/24 11:50 Rx propranolol 10 mg tablet 10 mg PO TID PRN anxiety #90 tabs 02/20/24 Unknown Rx escitalopram oxalate 20 mg tablet 20 mg PO DAILY 30 da ys #30 tabs 05/07/24 05/24/24 11:50 Rx medroxyprogesterone 150 mg/mL 150 mg IM [id number] 05/07 Unknown History intramuscular syringe (Depo-Provera) albuterol 90 mcg/actuation aerosol 90 mcg inhalation D AILY PRN PRN 05/25/24 Unknown History inhaler asthma flareup Allergy/AdvReac Type Severity Reaction Status Date / Time Pork/Porcine Containing AdvReac Mild intolerance Verified 05/25/24 06:06 Products Family History Other Anxiety Arthritis Suicide attempt Surgical History History of esophagogastroduodenoscopy (EGD) History of wisdom tooth extraction Social History Smoking Status: Former smoker alcohol intake: former substance use type: does not use frequency: 1-2 times per week Addt'l Information Additional Findings: With last EGD patient needed postop albuterol treatment for mild asthma symptoms. Seizure history at age 12, one seizure, [facility], unable to determine cause, never occurred again. Review of Systems (Anesthesia) ROS Narrative System reviewed and no additional complaints, except as documented.
[2024-05-25 06:36] VITALS: BP 126/73; PULSE 108; RESP 16; TEMP 37.1; O2SAT 100
--- NOTE | 2024-05-25 07:00 | EGD_PTH ---
PATIENT: KAHLIL DHILLON LOC: EN U#:[id number] AGE/SX: 29/F ROOM: RE05/25/[address]: Dr. Chris Yañez DO : 1995 BED: DIS: 05/25/2024 SPEC #: [id number] RECD: 05/25/24 11:28 STATUS: TD JEWEL #: [id number] THIAGO: 05/25/24 07:[address]: Chris Yañez DEPT: SURGICAL PATHOLOGY RECD BY: Indra Baxter ENTERED: 05/25/24 11:28 SP TYPE: EGD BIOPSY KOREY DR: Dr. Suraj Freeman MD Tissues: Esophagus, NOS Procedures: Surgery Specimen Level IV HEADER OPERATION: EGD, biopsy PRE-OP DIAGNOSIS: Eosinophilic esophagitis, esophageal dysmotility, dysphagia TISSUE SUBMITTED: Random esophagus biopsy MICROSCOPIC DIAGNOSIS ESOPHAGUS, RANDOM BIOPSY: * Squamous mucosa with mild reactive changes. * Rare eosinophil observed. MICROSCOPIC DESCRIPTION Slides are reviewed. GROSS DESCRIPTION Received in fixative is one container labeled with the patient's name and designated Random esophagus biopsy. The specimen consists of multiple irregular fragments of light brody soft tissue that in aggregate measure 1.1 x 0.5 x 0.2 cm. The specimen is totally submitted in one cassette. MS/mr 05/25/2024 CPT:44095
--- NOTE | 2024-05-25 07:38 | OP.EGD_ITS ---
Patient Name: Amy Medina Procedure Date: 05/25/2024 7:13 AM Date of : 1995 Age: 29 Procedure: Upper GI endoscopy Indications: Dysphagia Providers: DO Jazlyn Spangler MD: Suraj Freeman MD Medicines: Monitored Anesthesia Care Patient Profile: This is a 29 year old female. Refer to note in patient chart for documentation of history and physical. Patient has symptoms of dysphagia with both liquids and solids. Complications: No immediate complications. Procedure: Pre-Anesthesia Assessment: - Prior to the procedure, a History and Physical was performed, and patient medications and allergies were reviewed. The patient is competent. The risks and benefits of the procedure and the sedation options and risks were discussed with the patient. All questions were answered and informed consent was obtained. Patient identification and proposed procedure were verified by the physician in the pre-procedure area. Mental Status Examination: alert and oriented. Airway Examination: normal oropharyngeal airway and neck mobility. Respiratory Examination: clear to auscultation. CV Examination: normal. Prophylactic Antibiotics: The patient does not require prophylactic antibiotics. Prior Anticoagulants: The patient has taken no anticoagulant or antiplatelet agents except for NSAID medication. ASA Grade Assessment: II - A patient with mild systemic disease. After reviewing the risks and benefits, the patient was deemed in satisfactory condition to undergo the procedure. The anesthesia plan was to use monitored anesthesia care (MAC). Immediately prior to administration of medications, the patient was re-assessed for adequacy to receive sedatives. The heart rate, respiratory rate, oxygen saturations, blood pressure, adequacy of pulmonary ventilation, and response to care were monitored throughout the procedure. The physical status of the patient was re-assessed after the procedure. After obtaining informed consent, the endoscope was passed under direct vision. Throughout the procedure, the patient's blood pressure, pulse, and oxygen saturations were monitored continuously. The Endoscope was introduced through the mouth, and advanced to the second part of duodenum. The upper GI endoscopy was accomplished without difficulty. The patient tolerated the procedure well. Scope In: 7:28:46 AM Scope Out: 7:32:22 AM Total Procedure Duration Time 0 hours 3 minutes 36 seconds Findings: Abnormal motility was noted in the esophagus. The cricopharyngeus was abnormal. There are extra peristaltic waves in the esophageal body. The distal esophagus/lower esophageal sphincter is spastic, but gives up passage to the endoscope. Tertiary peristaltic waves are noted. Biopsies were taken with a cold forceps for histology. Verification of patient identification for the specimen was done. Estimated blood loss was minimal. The entire examined stomach was normal. The second portion of the duodenum was normal. Impression: - Abnormal esophageal motility. Biopsied. - Normal stomach. - Normal second portion of the duodenum. Recommendation: - Discharge patient to home. - Resume previous diet. - Continue present medications. Procedure Code(s): --- Professional --- 95577, Esophagogastroduodenoscopy, flexible, transoral; with biopsy, single or multiple CPT copyright 2021 [employer]. All rights reserved. The codes documented in this report are preliminary and upon wildlife biostation research ecologist review may be revised to meet current compliance requirements. Chris Yañez DO 05/25/2024 7:38:01 AM This report has been signed electronically. Number of Addenda: 0 Note Initiated On: 05/25/2024 7:13 AM
--- NOTE | 2024-05-25 07:38 | OP.CCLET_ITS ---
05/25/2024 Suraj Freeman MD [address] [place] [address] Re : Upper GI endoscopy procedure for Amy Adam Dear Dr. Freeman This procedure was performed on Saturday, May 25, 2024. My impressions and recommendations are as follows: Impressions : - Abnormal esophageal motility. Biopsied. - Normal stomach. - Normal second portion of the duodenum. Recommendations : - Discharge patient to home. - Resume previous diet. - Continue present medications. My findings are described in the full procedure note, which is enclosed. If I can be of further assistance, please feel free to contact me at . Sincerely, Chris Yañez, 05/25/2024 7:38:01 AM This report has been signed electronically.
[2024-05-25 07:40] VITALS: BP 102/90; BP 110/72; BP 126/73; PULSE 108; RESP 18; RESP 20; TEMP 36.7; O2SAT 34; O2SAT 95
--- NOTE | 2024-05-25 07:40 | PCM.POST.ANE ---
Anesthesia: Postop Eval I Current Vital Signs Temperature: 98.1 F Pulse Rate: 108 Blood Pressure: 110/72 Respiratory Rate: 20 Pulse Ox: 34 Assessment Airway patent: Yes Spontaneous unlabored respirations: Yes nausea: No Vomiting: No Anesthesia Complication: No Fluid Hydration Crystalloid volume administer (ml): 10 Total IV fluid infused: 10 Progress Note Anesthesia document: Postop Eval 1 completed: Yes
[2024-05-25 07:45] VITALS: BP 102/78; BP 126/73; PULSE 82; RESP 16; O2SAT 95
--- NOTE | 2024-05-25 07:49 | POSTOPAN2_ITS ---
Anesthesia Postop Eval I Sum Postop Eval Completion status Anesthesia document: Postop Eval 1 completed: Yes Anesthesia Postop Eval I Summary Anesthesia Postop Eval I Summary: Anesthesia Postop Eval I: Assessment Summary Airway patent Yes 05/25/24 07:40 RICE [email or web address] Spontaneous unlabored Yes 05/25/24 07:40 RICE [email or web address].CSIR respirations Mental status nausea No 05/25/24 07:40 RICE [email or web address].CSIR Vomiting No 05/25/24 07:40 RICE [email or web address] Anesthesia Postop Eval I: Fluid Summary Crystalloid volume administer 10 05/25/24 07:40 RICE [email or web address] (ml) Colloids volume administered ( ml) Blood Product volume administered (ml) Total IV fluid infused 10 05/25/24 07:40 RICE [email or web address] Anesthesia Postop Eval I: Summary Notes Anesthesia Complication No 05/25/24 07:40 RICE [email or web address] Anesthesia Complication Comment: Post-operative progress note Anesthesia: Postop Eval II Evaluation Mental status: Awake Pain Level: 0 nausea: No Vomiting: No
--- NOTE | 2024-05-25 07:49 | PCM.POSTANE2 ---
Anesthesia Postop Eval I Sum Postop Eval Completion status Anesthesia document: Postop Eval 1 completed: Yes Anesthesia Postop Eval I Summary Anesthesia Postop Eval I Summary: Anesthesia Postop Eval I: Assessment Summary Airway patent Yes 05/25/24 07:40 [email or web address] Spontaneous unlabored Yes 05/25/24 07:40 [email or web address] respirations Mental status nausea No 05/25/24 07:40 [email or web address] [email or web address] Vomiting No 05/25/24 07:40 [email or web address] Anesthesia Postop Eval I: Fluid Summary Crystalloid volume administer 10 05/25/24 07:40 [email or web address] [email or web address] (ml) Colloids volume administered ( ml) Blood Product volume administered (ml) Total IV fluid infused 10 05/25/24 07:40 LOAD [email or web address] Anesthesia Postop Eval I: Summary Notes Anesthesia Complication No 05/25/24 07:40 LOAD [email or web address] Anesthesia Complication Comment: Post-operative progress note Anesthesia: Postop Eval II Evaluation Mental status: Awake Pain Level: 0 nausea: No Vomiting: No
[2024-05-25 07:50] VITALS: BP 114/75; BP 126/73; PULSE 80; RESP 16; TEMP 36.8; O2SAT 97
[2024-05-25 08:04] VITALS: BP 126/73
== END 2024-05-25 08:17 | disposition home or self-care (01) ==
LOC: EN 05:44 → AC 05:46
PROVIDERS: Anesthesiology; PCP Family Medicine; Referring Provider Family Medicine; Visit Provider Internal Medicine Gastroenterology
PROC: 0DJ08ZZ Inspection of Upper Intestinal Tract, Via Natural or Artificial Opening Endoscopic (ICD-10-PCS; CPT 43235; principal; 2024-05-25 06:55)
DX: K22.4 Dyskinesia of esophagus (principal); K20.0 Eosinophilic esophagitis; R13.19 Other dysphagia; J45.909 Unspecified asthma, uncomplicated; Z79.899 Other long term (current) drug therapy; Z87.891 Personal history of nicotine dependence
CPT/HCPCS: 43239; 81025; 88305; A4216; J2405

== ENCOUNTER → 2024-07-31 | Day surgery (SDC) | payer MEDICAID, SELFPAY ==
[2024-07-31] MEDS: Lidocaine Jelly 2% 20 ML Syringe (URO-JET) 1 APPLIC (07:02)
[2024-07-31 07:10] VITALS: BP 137/99; PULSE 92; RESP 18; O2SAT 98
== END | disposition home or self-care (01) ==
LOC: EN 06:50
PROVIDERS: PCP Family Medicine; Referring Provider Family Medicine; Visit Provider Internal Medicine Gastroenterology
PROC: F00ZJWZ Instrumental Swallowing and Oral Function Assessment using Swallowing Equipment (ICD-10-PCS; CPT 43235; principal; 2024-07-31 06:55)
DX: R13.10 Dysphagia, unspecified (principal)
CPT/HCPCS: 91010